=== PATIENT | male | born 1965 | race Caucasian/White ===

== ENCOUNTER 2019-10-23 21:01 | Emergency (ER) | payer BC, SELFPAY ==
[2019-10-23 21:07] VITALS: BP 118/70; PULSE 105; RESP 20; TEMP 36.6; O2SAT 98
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
[2019-10-23] MEDS: Ibuprofen 600 MG TAB PO (21:20)
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
[2019-10-23] MEDS: Lidocaine 5% Patch 1 PATCH TP (21:55)
== END 2019-10-23 21:55 | disposition home or self-care (01) ==
LOC: ER 22:19
PROVIDERS: Emergency Provider Emergency Medicine
DX: S22.32XA Fracture of one rib, left side, initial encounter for closed fracture (principal); V18.0XXA Pedal cycle driver injured in noncollision transport accident in nontraffic accident, initial encounter; Y93.55 Activity, bike riding; I10 Essential (primary) hypertension
CPT/HCPCS: 99283; 71046

== ENCOUNTER 2023-08-24 15:34 | Emergency (ER) | payer BC, SELFPAY ==
--- NOTE | 2023-08-24 15:38 | ED.GENADUL_ITS ---
Discharge Plan Disposition Patient Disposition: Home Discharge Details Clinical Impression: Abdominal pain Primary Care Provider: None,None ED Provider: Mark Anthony Olguin Home Meds and New Rx's Prescriptions: Continued metoprolol succinate 25 mg tablet extended release 24 hr 12.5 mg PO BID Patient Comments: TAKE 1/2 OF A TABLET (12.5 MG TOTAL) BY MOUTH TWICE A DAY Eliquis 5 mg tablet 5 mg PO BID atorvastatin 10 mg tablet 20 mg PO QPM Patient Comments: TAKE 1 TABLET BY MOUTH EVERY DAY Discharge Instructions Instructions: Abdominal Pain, Adult ED Additional Instructions: You were seen in the emergency department for your abdominal pain. Your CAT scan showed no sign of appendicitis and no sign of kidney stone. As we discussed if you develop fevers nausea vomiting worsening pain or have any other concerns please return to the emergency department. The CAT scan of your back showed signs that you have an old small compression fracture. If you lose control of your bowels or bladder develop any numbness or tingling between your legs please also return to the emergency department. Otherwise please follow-up with your primary care provider next week. Discharge Data Discharge Date/Time-TO BE ENTERED AT DEPARTURE: 08/24/23 17:55 HPI General Date/Time Provider Initiated Documentation: 08/24/23 15:38 . HPI Narrative: MDM This is an overall very well-appearing normothermic and not tachycardic 58-year-old male with right lower quadrant tenderness concerning for the possibility of appendicitis for which patient will undergo CT abdomen pelvis with IV contrast. No pain out of proportion to suggest necrotizing soft tissue infection. Based on the patient's well appearance and lack of history of atrial fibrillation my suspicion is low for mesenteric ischemia so I did not send a lactate. Gradual onset of pain & no hx of uretheralithiasis so my suspicion for the same is low. No rash to abdomen to suggest zoster. Patient does have a relatively elevated BMI so we will obtain a lipase to assess for pancreatitis. No chest pain to suggest ACS so I did not send a troponin or check a twelve-lead ECG. No dysuria nor frequency so doubt UTI. No urinary retention so my suspicion is low for cauda equina. Patient does have history of anticoagulant use with apixaban so retroperitoneal bleed certainly in the differential despite no recent trauma. No recent spinal instrumentation to suggest increased risk for spinal epidural hematoma. No fever to suggest spinal epidural abscess. No saddle anesthesia to suggest cauda equina syndrome no loss of bowel or bladder control. Patient does have a history of diverticulitis and this is certainly in the differential given his change in stool recently. No signs of obvious strangulation or incarceration so I did not send a lactate. 5:[address] read as reassuring with no acute abdominal or pelvic process. Patient does have what appears to be a chronic compression deformity of the superior endplate of L1. Labs reassuring not consistent with DKA. No anemia or thrombocytopenia nor leukocytosis. No acute LFT abnormalities. I met with the patient and his . I explained his reassuring evaluation. I advised ED return for fevers, vomiting, worsening pain, loss of bowel or bladder control. Otherwise I advised PCP follow up next week. Patient understood his return indications and was discharged with an empiric trial of expectant outpatient management. HPI This is a 58-year-old male with a history of bicuspid aortic valve status post valve replacement on apixaban arrived to the emergency department via private vehicle in setting of dull right lower quadrant ache. Patient notes that about 1 week ago he began to develop some low back pain. Today he developed some abdominal pain. 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 He is also noticed a bulge in his umbilicus. No past surgical history. Patient does have a history of diverticulitis. He notes over the past several days his stool has changed. He still having normal daily bowel movements but notes that he is having small pieces of stool rather than 1 large bowel movement. He denies nausea and vomiting. He said no dysuria and no frequency. He describes his right lower quadrant pain as a persistent dull ache. He has not been constipated. He denies fevers. He denies routine tobacco, ethanol, and illicits. No hx of kidney stones. Exam General: Well-appearing in no acute distress speaking in complete sentences. Head: Normocephalic, atraumatic. Eye: Extraocular eye movements intact. No conjunctival injection. No scleral icterus. Ear, nose, mouth, throat: Grossly normal inspection. Normal voice, handling secretions normally. Neck: Trachea midline. Cardiovascular: Well-perfused distal extremities. Respiratory: Nonlabored respiration. Gastrointestinal: Nondistended abdomen. Musculoskeletal: No edema. Moving all 4 extremities spontaneously. Skin: Normal for age and race, grossly normal temperature and turgor. No acute rash. Neurologic: Alert and appropriate, no apparent acute deficits. Psychiatric: Mood and manner are appropriate. Grooming and personal hygiene are appropriate. Related Data Home Medications Medication Instructions Recorded Confirmed apixaban 5 mg tablet (Eliquis) 5 mg PO BID 08/24/23 08/24/23 atorvastatin 10 mg tablet 20 mg PO QPM 08/24/23 08/24/23 metoprolol succinate 25 mg 12.5 mg PO BID 08/24/23 08/24/23 tablet,extended release 24 hr Allergies Allergy/AdvReac Type Severity Reaction Status Date / Time No Known Allergies Allergy Unverified 08/24/23 15:37 General STEPHEN: 3 Medical Decision Making Quality:SDOH Health Related Social Needs: No Data to Display PFSH All Active Problems (Updated 08/24/23 @ 17:48 by Mark Anthony Olguin MD) Abdominal pain (Acute) Medical History (Updated 08/24/23 @ 17:48 by Mark Anthony Olguin MD) Aortic valve, bicuspid Surgical History (Updated 10/23/19 @ 21:12 by Fernando Manning NP) [place] teeth extracted Social History Smoking/Tobacco Use Status: Never Smoking risk assessment performed?: Yes Alcohol Intake: current Alcohol Intake frequency: holidays/special occasions only Drug use: Never Substance use type: does not use Housing: house Do you feel safe at home: Yes Do you feel safe in your relationship?: Yes
[2023-08-24 15:41] VITALS: BP 154/85; PULSE 92; RESP 16; TEMP 36.9; O2SAT 96
--- NOTE | 2023-08-24 15:45 | DI.CT_ITS ---
Exam(s) CT LUMBAR SPINE RECONS CT ABDOMEN PELVIS W EXAM: CT ABDOMEN PELVIS W and CT lumbar recons CLINICAL HISTORY: Right lower quadrant pain TECHNIQUE: Imaging Protocol: Axial computed tomography images with coronal and sagittal reformatted images were created and reviewed. CONTRAST MATERIAL: Intravenous: Omnipaque 350 Contrast volume:100 mL Oral: No COMPARISON: CR,XR XR CHEST 2V PA LATERAL from 10/23/2019 FINDINGS: ABDOMEN: Lung Bases: Aortic valve replacement. Coronary artery calcification and/or stent. There is a small paraesophageal hernia. There is scarring or atelectasis in the lung bases. Liver: Normal density. No measurable mass. Portal, Superior Mesenteric, and Splenic Veins: Unremarkable. Gallbladder and Biliary Tract: No radiodense calculus or dilation. Pancreas: Normal density, no abnormal calcifications or inflammatory process. Spleen: Normal. Adrenals: No masses seen. Kidneys: Normal size, contour and axis. No radiodense stones or obstructive uropathy. No masses seen. Abdominal Aorta: Abdominal portion non-dilated. Atherosclerotic calcification is present. Bowel: There is diverticulosis of the colon, but no evidence of acute diverticulitis. There is no ev idence of bowel wall thickening or bowel obstruction. A normal appendix is visualized. This is best appreciated on the sagittal images. (Series 10 images [id number]. Peritoneal Cavity: No ascites, collection or mesenteric inflammatory response. No free air. Lymph Nodes: Within normal limits. Bones: Within normal limits for the patient's age. Soft Tissues: There is a fat containing small umbilical hernia. Small fat containing inguinal hernia s are present, right greater than left. Lumbar spine CT recons: There is a compression deformity of the superior endplate of L1 which appears old. This does not appear to been present on the chest x-ray from 10/23/2019. There are degenerative changes seen in the spine consistent with the patient's age. There is mild narrowing of the neural foramina bilaterally at L4-L5. At L4-L5 there is a diffuse disc bulge with facet arthropathy causing moderate central spinal canal stenosis.. PELVIS: Bladder: Symmetric distention, no gross wall thickening. Reproductive Organs: Unremarkable as visualized. Lymph Nodes: Within normal limits. Bones: Within normal limits for the patient's age. IMPRESSION: 1. No acute abdominal or pelvic process. 2. Colonic diverticulosis without evidence of acute diverticulitis. 3. Normal appendix, no evidence of nephrolithiasis or obstructive uropathy and unremarkable gallbladd er. No biliary ductal dilatation. 4. Degenerative changes seen in the lumbar spine particularly at L4-L5 where there is moderate centra l spinal canal stenosis and mild bilateral neural foraminal stenosis. 5. Depression of the superior endplate of L1 which may be old. It was not present on 10/23/2019. Plea se correlate clinically. Outpatient MRI may be obtained for further evaluation. RADIATION DOSE DELIVERED: 1,194.3mGy.cm Total DLP DATA REPOSITORY: All CT scans at this facility are submitted to the National Radiology Data Registry (NRDR) Dose Index Registry (DIR) with the [employer] ([employer]). RADIATION OPTIMIZATION: All CT scans at this facility use at least one of these dose optimization te chniques: automated exposure control; mA and/or kV adjustment per patient size (includes targeted exa ms where dose is matched to clinical indication); or iterative reconstruction.
[2023-08-24] MEDS: Normal Saline 500 ML IV (16:21)
[2023-08-24] MEDS: ACETAMINOPHEN 1,000 MG/100 ML BTL 400 MG IVPB (16:21)
[2023-08-24 16:26] LABS: Abs Immature Grans 0.03 10^3/uL (0.0-0.06); Absolute Basophil Count 0.06 10^3/uL (0.0-0.2); Absolute Eosinophil Count 0.15 10^3/uL (0.0-0.7); Absolute Lymphocyte Count 1.86 10^3/uL (1.2-3.4); Absolute Neutrophil Count 7.39 10^3/uL (1.2-6.7); Basophils % 0.6 %; Eosinophils % 1.5 %; HCT 43.1 % (40.0-50.0); HGB 14.2 g/dL (13.5-17.5); Immature Grans % 0.3 %; Lymphocytes % 18.3 %; MCH 28.6 pg (27.0-33.0); MCHC 32.9 % (32.0-36.0); MCV 87 fL (80-95); MPV 10.4 fL (8.0-11.0); Monocytes % 6.9 %; Neutrophils % 72.4 %; Platelet Count 199 10^3/uL (130-400); RBC 4.96 10^6/uL (4.36-5.78); RDW 13.2 % (11.8-14.1); RDW-SD 41.6 fL; WBC 10.19 10^3/uL (4.4-10.8)
[2023-08-24] MEDS: Normal Saline - Diluent 50 ML VIAL IJ (16:35)
[2023-08-24] MEDS: Omnipaque 350 MG/ML 100 ML BTL IJ (16:36)
[2023-08-24 16:40] LABS: Lipase 45 U/L (16-77)
[2023-08-24 16:44] LABS: ALT 37 U/L (16-63); AST 31 U/L (15-37); Alkaline Phosphatase 88 U/L (46-116); Anion Gap 8.9 mmol/L (3-11); BUN 14 mg/dL (7-18); Bilirubin, Total 0.44 mg/dL (0.2-1.0); CO2 26.1 mmol/L (21.0-32.0); CREATININE 0.9 mg/dL (0.70-1.30); Calcium 8.6 mg/dL (8.5-10.1); Chloride 105 mmol/L (98-107); Estimated GFR 98.38 (mL/min/1.73m2); Glucose 112 mg/dL (74-106); Potassium 4.1 mmol/L (3.5-5.1); Sodium 140 mmol/L (136-145); Total Protein 7.2 g/dL (6.4-8.2)
[2023-08-24 17:03] VITALS: BP 127/82; PULSE 65; RESP 20; TEMP 37.1
--- NOTE | 2023-10-01 13:41 | NUR.NOTE ---
Patient requested copies of his CT results from most recent visit. Copies of ct results printed and given to patient after verifying identity from [place] driver's license.
== END 2023-08-24 17:55 | disposition home or self-care (01) ==
PROVIDERS: Emergency Provider Emergency Medicine
DX: R10.31 Right lower quadrant pain (principal); M54.50 Low back pain, unspecified; Z79.01 Long term (current) use of anticoagulants; Z95.2 Presence of prosthetic heart valve; M48.56XA Collapsed vertebra, not elsewhere classified, lumbar region, initial encounter for fracture
CPT/HCPCS: 80053; 83690; 96361; 96374; 99285; 74177; 85025; 99284; J0131; J3490